=== PATIENT | female | born 2000 | race Caucasian/White ===

== ENCOUNTER 2022-12-10 13:42 | Emergency (ER) | payer OTHER ==
[~2022-12-10] VITALS: Ht 154.9 cm; Wt 38.2 kg
[2022-12-10 15:40] VITALS: BP 113/77
== END 2022-12-10 15:42 | disposition home or self-care (01) ==
LOC: M ED 13:42
DX: S83.411A Sprain of medial collateral ligament of right knee, initial encounter (principal); M25.561 Pain in right knee; F17.200 Nicotine dependence, unspecified, uncomplicated; Z88.0 Allergy status to penicillin

== ENCOUNTER → 2023-01-04 | Outpatient (CLI) | payer OTHER | LOC: M SOG 09:05 | PROVIDERS: ATTEND Orthopaedic Surgery | DX: M25.561 Pain in right knee (principal) ==

== ENCOUNTER 2023-02-09 08:50 | Emergency (ER) | payer OTHER ==
[~2023-02-09] VITALS: Ht 154.9 cm; Wt 40.2 kg
[2023-02-09 08:51] VITALS: BP 113/72; TEMP 97.5; O2SAT 97
== END 2023-02-09 09:55 | disposition home or self-care (01) ==
LOC: M ED 08:50
DX: Z32.01 Encounter for pregnancy test, result positive (principal); F41.9 Anxiety disorder, unspecified; F32.A Depression, unspecified; Z87.891 Personal history of nicotine dependence; Z88.0 Allergy status to penicillin